=== PATIENT | female | born 1965 | race Caucasian/White ===

== ENCOUNTER 2018-06-12 00:28 | Observation (INO) | payer BC ==
[2018-06-12 01:28] LABS: Base Excess-Venous -3.1 mmol/L (0 (+/- 2.5)); Bicarbonate (HCO3v) 21.5 mmol/L (1.0-85.0); CO2 Tension (PvCO2) 35.7 mmHg (41.0-51.0); Calcium, Ionized 1.16 mmol/L (1.12-1.32); Hemoglobin - Calc 11.5 g/dL (12.0-18.0); O2 Tension (PvO2) 81.6 mmHg (35.0-45.0); Potassium 4.2 mmol/L (3.4-4.7); T. Carbon Dioxide 22.6 mmol/L (1.0-85.0); pH (Venous) 7.387 (7.35-7.45); vO2 Saturation-calc 95.9 % (94-98)
[2018-06-12 01:52] LABS: Hemoglobin 11.7 g/dL (12.0-16.0); Mean Corpuscular HGB CONC 35.2 g/dL (32.0-36.0); Mean Corpuscular Hemoglobin 31.8 pg (27.0-31.0); Mean Corpuscular Volume 90.3 fL (78.0-98.0); Mean Platelet Volume 8.1 fL (7.4-10.4); Platelet Count 285 thou/uL (130-400); RBC Distribution Width 12.6 % (11.5-14.5); Red Blood Cell (RBC) Count 3.67 mill/uL (4.20-5.40); White Blood Cell (WBC) Count 7.1 thou/uL (4.8-10.8)
[2018-06-12 02:00] LABS: Band 8 % (5-11); Eosinophils 2 % (0-10); Lymphocytes 48 % (21-51); MDiff Complete? YES; Monocytes 7 % (0-10); Neutrophil 33 % (42-75)
[2018-06-12 02:03] LABS: ALT (SGPT) 15 U/L (8-55); AST (SGOT) 12 U/L (5-34); Albumin 3.6 g/dL (3.5-5.0); Alkaline Phosphatase 107 U/L (40-150); Anion Gap 13 mmol/L (10-20); BUN (Urea Nitrogen) 23 mg/dL (9.8-20.1); Bilirubin, Total 0.3 mg/dL (0.2-1.2); Calc. Creatinine Clearance 0 mL/min (70-130); Calcium 9.2 mg/dL (7.8-10.44); Carbon Dioxide 20 mmol/L (22-29); Chloride 106 mmol/L (98-107); Estimated GFR-MDRD 67; Globulin 2.9 g/dL (2.4-3.5); Glucose 106 mg/dL (70-105); Potassium 4.4 mmol/L (3.5-5.1); Protein, Total 6.5 g/dL (6.0-8.3); Sodium 135 mmol/L (136-145)
[2018-06-12 04:37] VITALS: BMI 48.5
[2018-06-12] MEDS ORDERED: Sodium Chloride 0.9% 1,000 ML IV SCH (05:45)
[2018-06-12] MEDS ORDERED: Bisacodyl 5 MG TAB PO PRN (10:46)
[2018-06-12] MEDS ORDERED: Dextrose 5% in Water 1,000 ML IV PRN (10:46)
[2018-06-12] MEDS ORDERED: Dextrose 50% Abboject 50 ML SYRINGE SLOW IVP PRN (10:46)
[2018-06-12] MEDS ORDERED: Insulin Glargine 20 UNITS in Pre-Filled Syringe SC SCH (11:00)
[2018-06-12] MEDS: Sodium Chloride 0.9% 1,000 ML IV SCH ×2 (11:19→22:04)
--- NOTE | 2018-06-12 11:23 | HP ---
PRIMARY CARE PROVIDER: Bola Argueta M.D. CHIEF COMPLAINT: Hyperglycemia. HISTORY OF PRESENT ILLNESS: Ms. Vega is a pleasant 53-year-old lady who was seen at [facility] following transfer from [place] [facility]. She was at work two nights ago. She felt extremely hot and diaphoretic. She felt unwell. She check ed her blood sugars and the machine read high. She continued to feel unwell yesterday. Her machine again read high and she started feeling worse. She therefore went to the emergency room at [facility]. She was found to have a blood sugar of 600. She received insulin and intravenous fluids and he r blood sugars improved. She was subsequently transferred to the emergency room at [facility]. She reports feeling better. She reports that her urine color is darker than usual. REVIEW OF SYSTEMS: All other systems reviewed and found to be negative. PAST MEDICAL HISTORY: Diabetes mellitus type 2. PAST SURGICAL HISTORY: Right knee surgery, D&C, appendectomy, cholecystectomy, left lens replacement . PSYCHIATRIC HISTORY: Depression. SOCIAL HISTORY: Patient denies tobacco use, alcohol use or recreational drug use. FAMILY HISTORY: Coronary artery disease in maternal grandfather. ALLERGIES: CODEINE and DEMEROL. CURRENT MEDICATIONS: Omeprazole 20 mg daily, Zoloft 50 mg daily, metformin 500 mg 2 times a day, lis inopril 20 mg daily, NovoLog insulin by sliding scale, Levemir 40 units at bedtime. PHYSICAL EXAMINATION: GENERAL: On examination, Ms. Vega is awake and alert, not in acute distress. She is morbidly obes e, with BMI of 48.6. VITAL SIGNS: Blood pressure is 111/75, pulse 81, respiratory rate 18, and she is saturating 98% on r oom air. She is afebrile. ENT: Dry mucosal membranes, no oropharyngeal erythema or exudates. NECK: Supple, nontender, trachea is midline. RESPIRATORY: Accessory muscles of breathing are not active. Chest wall movements are symmetric bila terally. LUNGS: Clear to auscultation without wheeze, rhonchi or crepitations. CARDIOVASCULAR: S1 and S2 are heard, regular. Peripheral pulses are palpable. No carotid bruit, no pericardial rub. ABDOMEN: Soft, nontender, bowel sounds heard, no hepatomegaly, no splenomegaly. NEUROLOGIC: Cranial nerves II-XII intact. Deep tendon reflexes are 2+. MUSCULOSKELETAL: Power is 5/5 in all 4 extremities. SKIN: No rashes or subcutaneous nodules. LYMPHATIC: No cervical lymphadenopathy. PSYCHIATRIC: Normal mood, normal affect, patient is oriented to person, place, and time. IMAGING DATA AND LABORATORY DATA: Ms. Vega's labs and investigations were reviewed. She had a erica st x-ray at [place], which did not show any pulmonary infiltrates. Urinalysis is positive for g lucose, ketones, bilirubin and negative for nitrite and leukocyte esterase. She has normal white cou nt, normocytic anemia with hemoglobin 11.7, normal platelet count, decreased manual neutrophil percen tage of 33, it was decreased in the past as well, sodium mildly decreased at 135, normal potassium, c reatinine normal today, although it was elevated at 1.36 yesterday, unremarkable liver profile and no rmal anion gap. Beta hydroxybutyrate level is normal as well. Carbon dioxide level is slightly decr eased at 20. Point of care glucose checks today morning have been 138 at 01:52 hours and 356 at 07:0 6 hours. ASSESSMENT AND PLAN: Ms. Vega is a pleasant 53-year-old lady who was seen at [facility] on 06/12/2018. Her problem list includes: 1. Hyperglycemia: Etiology is unclear. Patient reported being compliant with her medications excep t for missing her Levemir dose last night. There is no evidence of infection. We will start the pat ient on Accu-Cheks and insulin sliding scale. We will give her Levemir 20 units today morning and 40 units in the evening. We will also provide her with intravenous fluids. Once her sugars are contro lled, she will be discharged home. 2. Hyponatremia: Mild, we will recheck. 3. Elevated blood urea nitrogen: Likely from dehydration. Provide intravenous fluids and recheck. Many thanks for allowing me to participate in your patient's care. Please feel free to contact me wi th any questions or concerns. LEVEL OF RISK: Moderate. LEVEL OF COMPLEXITY: Moderate.
[2018-06-12] MEDS: HumaLOG 300 UNITS/3 ML VIAL SC PRN ×3 (15:08→20:36)
[2018-06-12] MEDS: Acetaminophen 325 MG TAB PO PRN ×2 (15:08→19:59)
[2018-06-12] MEDS ORDERED: Insulin Glargine 40 UNITS in Pre-Filled Syringe SC SCH (21:00)
[2018-06-13 05:25] LABS: Anion Gap 13 mmol/L (10-20); BUN (Urea Nitrogen) 13 mg/dL (9.8-20.1); Calc. Creatinine Clearance 162 mL/min (70-130); Calcium 8.8 mg/dL (7.8-10.44); Carbon Dioxide 20 mmol/L (22-29); Chloride 110 mmol/L (98-107); Estimated GFR-MDRD 82; Sodium 139 mmol/L (136-145)
[2018-06-13 05:34] LABS: Glucose 52 mg/dL (70-105)
[2018-06-13 05:51] LABS: Band 5 % (5-11); Eosinophils 3 % (0-10); Hemoglobin 11.2 g/dL (12.0-16.0); Lymphocytes 54 % (21-51); MDiff Complete? YES; Mean Corpuscular HGB CONC 33.2 g/dL (32.0-36.0); Mean Corpuscular Hemoglobin 30.6 pg (27.0-31.0); Mean Corpuscular Volume 92.2 fL (78.0-98.0); Mean Platelet Volume 7.3 fL (7.4-10.4); Monocytes 4 % (0-10); Neutrophil 33 % (42-75); Platelet Count 267 thou/uL (130-400); RBC Distribution Width 12.6 % (11.5-14.5); Reactive Lymphocytes 1 % (0-10); Red Blood Cell (RBC) Count 3.68 mill/uL (4.20-5.40); White Blood Cell (WBC) Count 5.3 thou/uL (4.8-10.8)
[2018-06-13 08:01] VITALS: TEMP 98.1
[2018-06-13] MEDS: Sodium Chloride 0.9% 1,000 ML IV SCH (08:11)
[2018-06-13] MEDS ORDERED: Enoxaparin Sodium 40 MG/0.4 ML SYRINGE SC SCH (09:00)
[2018-06-13 11:57] VITALS: BP 97/66
--- NOTE | 2018-06-13 21:30 | DIS ---
DATE OF ADMISSION: 06/12/2018 DATE OF DISCHARGE 06/13/2018 PRIMARY CARE PHYSICIAN: Bola Argueta MD DISCHARGE DIAGNOSES: 1. Hyperglycemia. 2. Hyponatremia. 3. Dehydration. DISCHARGE MEDICATIONS: No change was made to her preadmission home medications as dictated on my his tory and physical note dated 06/12/2018. CONDITION OF THE PATIENT ON THE DAY OF DISCHARGE: Stable. I assessed Ms. Vega on the day of disch arge. She reports feeling better. She denies any chest pain or shortness of breath. Vital signs ar e stable. S1 and S2 are heard, regular. Lungs are clear to auscultation bilaterally. HOSPITAL COURSE: Mr. Vega is a pleasant 53-year-old lady who was admitted to [facility] on 06/12/2018 for hyperglycemia following transfer from emergency room at [place]. The hyperglycemia occurred in the context of working in a hot environment, most likely precipitated by stress response. She was not in diabetic ketoacidosis. She was also dehydrated and was hyponatre usman. She was treated with intravenous fluids as well as insulin prior to arrival at [facility]. At [facility], she received 20 units of Levemir on the morning of 2017 and 40 units in the evening. She did have hypoglycemic response on the morning of 06/13/2018. She is advised to continue her home dose of 40 units Levemir at bedtime. Her dehydration resolved. Hyponatremia also resolved. She is being discharged home in a stable cond ition. Many thanks for allowing me to participate in your patient's care. Please feel free to contact me wi th any questions or concerns. DISCHARGE DESTINATION: Home.
== END 2018-06-13 12:54 | disposition home or self-care (01) ==
LOC: ERS 00:28 → T4-B 04:06
PROVIDERS: ADMIT Hospitalist; ATTEND Hospitalist
DX: E11.65 Type 2 diabetes mellitus with hyperglycemia (principal); E87.1 Hypo-osmolality and hyponatremia; Z88.5 Allergy status to narcotic agent; Z79.4 Long term (current) use of insulin; Z79.899 Other long term (current) drug therapy
CPT/HCPCS: 36415; 36416; 80048; 80053; 82010; 82330; 82803; 85025; 96360; 96361; 96372; 99285; G0378; J1650

== ENCOUNTER 2019-06-17 16:29 | Inpatient (IN) | payer BC ==
[2019-06-17] MEDS ORDERED: Dextrose 50% Abboject 50 ML SYRINGE SLOW IVP PRN ×2 (17:10→18:05)
[2019-06-17] MEDS ORDERED: HUMULIN R 100 UNITS in Sodium Chloride 0.9% 100 ML IVPB SCH (17:10)
[2019-06-17] MEDS ORDERED: Dextrose 5% in Water 1,000 ML IV PRN ×2 (17:10→18:05)
[2019-06-17 17:19] LABS: Phosphorus 2.2 mg/dL (2.3-4.7)
[2019-06-17 17:20] LABS: Anion Gap 15 mmol/L (10-20); BUN (Urea Nitrogen) 19 mg/dL (9.8-20.1); Calc. Creatinine Clearance 0 mL/min (70-130); Calcium 9.3 mg/dL (7.8-10.44); Carbon Dioxide 21 mmol/L (22-29); Chloride 105 mmol/L (98-107); Estimated GFR-MDRD 56; Glucose 102 mg/dL (70-105); Magnesium 1.6 mg/dL (1.6-2.6); Sodium 137 mmol/L (136-145)
[2019-06-17] MEDS ORDERED: Ondansetron PF 4 MG/2 ML Vial IVP PRN (18:05)
[2019-06-17] MEDS ORDERED: Senokot S 8.6-50 MG TAB PO PRN (18:05)
[2019-06-17] MEDS ORDERED: Guaifenesin DM 100-10/5 ML UDCUP PO PRN (18:05)
[2019-06-17] MEDS ORDERED: HumaLOG 300 UNITS/3 ML VIAL SC PRN (18:05)
[2019-06-17] MEDS ORDERED: Bisacodyl 10 MG SUPP PR PRN (18:05)
[2019-06-17] MEDS ORDERED: Calcium Carbonate 500 MG ChewTAB PO PRN (18:05)
--- NOTE | 2019-06-17 20:51 | HP ---
REASON FOR ADMISSION: Possible sepsis; diabetes uncontrolled; acute gastroenteritis, and [id number] dehydration. HISTORY OF PRESENTING ILLNESS: The patient gives history of having watery diarrhea for almost a week now. She was passing 4 to 5 times a day. No blood or mucus in the stool. From last 24 hours, the patient's diarrhea got worse and was almost going continuously. She thinks she had a small amount of diarrhea nearly 15 times in the last 24 hours. She also vomited once. She has developed a headache. She checked her sugar, it was 489 this morning. The patient states she had a coffee and toast, which stayed down this morning. She also complains of urinary burning sensation and itching around her vaginal/urethral orifice and started Monistat cream. She also uses estrogen cream, which was prescribed by Dr. Stovall. When EMS arrived to check on her, her blood pressure was 60/35. She was given 2 L of fluid at [place] [facility] and is getting her fourth liter of fluid here. Her systolic blood pressure has come up to 120. After her third liter, the patient's blood pressure was 86 systolic. She has no complaints of shortness of breath. She has dry cough, which has been chronic. No wound. No sore anywhere. No specific weakness in any of her extremities. No history of trauma. PAST MEDICAL AND SURGICAL HISTORY: Diabetes mellitus, type 2 for the last 30 years; obesity; hypertension. Recurrent UTI, almost had 6 times last year and was on Macrobid suppressive dose. This was discontinued 2 weeks back when she had a followup to see Dr. Stovall. Depression, GERD, right knee surgery, history of D and C, appendectomy, cholecystectomy, left cataract surgery with intraocular lens. No prior colonoscopy. CURRENT MEDICATIONS: The patient is on: 1. Omeprazole 20 mg p.o. daily. 2. Zoloft 50 mg p.o. daily. 3. Metformin 500 mg p.o. twice daily. 4. Lisinopril 20 mg p.o. daily. 5. NovoLog 15 units on an average before meals 3 times a day. 6. Levemir 35 units subcutaneously at bedtime. ALLERGIES: 1. CODEINE. 2. DEMEROL. PERSONAL HISTORY: Does not abuse alcohol or drugs. No history of smoking. FAMILY HISTORY: Mother is here with her at bedside. She has history of COPD, on home oxygen. She also has history of breast cancer. She does not know much about her biological father. He had known history of coronary artery disease. Likely , he is living. CODE STATUS: Full. Power of sports attorney is her mom. REVIEW OF SYSTEMS: CONSTITUTIONAL: Negative for weight loss or gain, ability to conduct usual activities. SKIN: Negative for rash, itching. EYES: Negative for double vision, pain. ENT/MOUTH: Negative for nose bleeding, neck stiffness, pain, tenderness. CARDIOVASCULAR: Negative for palpitations, dyspnea on exertion, orthopnea. RESPIRATORY: Negative for shortness of breath, wheezing, cough, hemoptysis, fever or night sweats. GASTROINTESTINAL: Negative for poor appetite, abdominal pain, heartburn, nausea , vomiting, constipation, or diarrhea. GENITOURINARY: Negative for urgency, frequency, dysuria, nocturia. MUSCULOSKELETAL: Negative for pain, swelling. NEUROLOGIC/PSYCHIATRIC: Negative for anxiety, depression. ALLERGY/IMMUNOLOGIC: Negative for skin rash, bleeding tendency. PHYSICAL EXAMINATION: GENERAL: The patient is a 54-year-old female, who is currently not in any acute distress. VITAL SIGNS: Blood pressure after 3 L was 90/56; after fourth liter, it has come up to 120/74. Pulse 86 per minute, respiratory rate 16 per minute, temperature 98.1 degrees Fahrenheit, saturating 98% on room air. NECK: Supple. No elevated JVD. HEENT: Eyes; extraocular muscles are intact. Pupils are reacting to light. Oral cavity; mucous membranes are dry. No exudates or congestion. CARDIOVASCULAR: S1 and S2 heard. Regular rhythm. RESPIRATORY: Air entry 1+ bilateral. No rales or rhonchi. ABDOMEN: Soft. Bowel sounds heard. No tenderness, rigidity, or guarding. Left costovertebral angle tenderness. EXTREMITIES: No peripheral edema or calf tenderness. VASCULAR: Peripheral pulses 1+ bilateral. No ischemic ulcerations or gangrene. CENTRAL NERVOUS SYSTEM: No gross focal deficits noted. The patient is alert, awake, and oriented well. PSYCHIATRIC: The patient's mood is euthymic. No hallucinations or delusions. LABORATORY DATA: UA shows more than 1000 mg/dL of glucose, ketones positive, trace leukocyte esterase, 0 to 3 wbc's, 1+ bacteria. Beta-hydroxybutyrate is 0.3. Random cortisol is 7.5. BUN 20, creatinine 1.2. Serum bicarb was 13; a repeat done at 5 p.m., is 21. Liver enzymes are within normal limits. Troponin I x1 is negative. Albumin 3.9. White count of 7.9, H and H 11 and 37, platelet count 302, MCV is 92 with 64% neutrophils. CLINICAL IMPRESSION AND PLAN: The patient will be admitted to medical floor. Initial plan was to send her to IMCU, but her blood pressure has improved after a total of 4 L. She likely is dehydrated. Again, initial suspicion was for sepsis with urinary tract infection along with left costovertebral angle tenderness and severe diarrhea, likely gastroenteritis. We will obtain stool cultures and Clostridium difficile. Blood cultures and urine culture have been obtained in the ER. She will be empirically placed on vancomycin and Zosyn for now. She will continue fluid hydration with lactated Ringer's at 125 mL/hour. Echo with 2D Doppler for LV function will be obtained. We will continue her Lantus at 40 units subcutaneously at bedtime tonight. I will continue to closely monitor her for any hemodynamic compromise. PT/OT evaluations will be requested again in the morning. A CT stone protocol and a chest x-ray will be obtained as well. Job ID: [id number] MTDD
[2019-06-17] MEDS ORDERED: Non-Formulary Item 1 EACH (Levemir Flexpen [Levemir Flexpen] 40 UNIT) SC SCH (21:00)
[2019-06-17] MEDS: Lactated Ringer's 1,000 ML IV SCH (21:12)
[2019-06-17] MEDS: Piperacillin/Tazobactam 3.375 GM in Sodium Chloride 0.9% 100 ML IVPB SCH (21:15)
[2019-06-17] MEDS: Famotidine 20 MG TAB PO SCH (21:16)
[2019-06-17] MEDS: Vancomycin HCl 1.5 GM in Sodium Chloride 0.9% 250 ML 300 ML IVPB SCH (21:21)
--- NOTE | 2019-06-17 21:31 | RAD ---
FRONTAL RADIOGRAPH CHEST: 06/17/2019 HISTORY: Sepsis. FINDINGS: The lungs are clear. The heart and mediastinal contours are unremarkable. IMPRESSION: No acute findings. POS: [facility]
--- NOTE | 2019-06-17 21:31 | CT ---
CT ABDOMEN AND PELVIS WITHOUT CONTRAST: 06/17/2019 HISTORY: Left flank pain. COMPARISON: None. TECHNIQUE: Axial CT imaging at 5 mm intervals through the abdomen/pelvis without contrast. Coronal reformatted imaging obtained. FINDINGS: Lack of contrast limits assessment of the viscera, bowel, and vascular structures and for lymphadenop athy. Small fat-containing Bochdalek hernia noted on the right. Imaged lung bases are unremarkable. No fr ee intraperitoneal air. Small-volume nonspecific free fluid noted in the pelvic cul-de-sac. There is a small hypodensity within the posterior right lobe of the liver, on image 28, measuring 10 mm, too small to characterize. The gallbladder is surgically absent. The liver, spleen, pancreas, a drenal glands, and kidneys demonstrate no acute findings. There is no nephrolithiasis or evidence of obstructive uropathy on either side. Limited assessment of the bowel demonstrates no evidence for obstruction. The appendix is not discretely visualized, but no right lower quadrant inflammatory change noted. There is scattered atherosclerotic calcification involving the arterial structures of the abdomen/pel vis. Review of the osseous structures demonstrates no worrisome lytic or blastic lesion. IMPRESSION: No evidence for obstructive uropathy or nephrolithiasis. POS: [facility]
[2019-06-17 22:36] VITALS: BMI 45.5
[2019-06-17] MEDS: Acetaminophen 325 MG TAB PO PRN (23:46)
[2019-06-17] MEDS: Insulin Glargine 40 UNITS in Pre-Filled Syringe 1 EACH SC SCH (23:47)
[2019-06-18] MEDS: Piperacillin/Tazobactam 3.375 GM in Sodium Chloride 0.9% 100 ML IVPB SCH ×2 (05:19→13:53)
[2019-06-18] MEDS: Acetaminophen 325 MG TAB PO PRN (05:19)
[2019-06-18] MEDS: Lactated Ringer's 1,000 ML IV SCH ×3 (05:20→18:04)
[2019-06-18 06:15] LABS: #Basophils 0.1 thou/uL (0.0-0.2); #Eosinphils 0.1 thou/uL (0.0-0.7); #Lymphocytes 2.1 thou/uL (1.20-3.40); #Monocytes 0.4 thou/uL (0.11-0.59); #Neutrophils 2.6 thou/uL (1.40-6.50); %Basophils 1.5 % (0.0-1.0); %Eosinophils 1.4 % (0.0-10.0); %Lymphocytes 40.5 % (21.0-51.0); %Monocytes 6.8 % (0.0-10.0); %Neutrophils 49.8 % (42.0-75.0); Hemoglobin 10.9 g/dL (12.0-16.0); Mean Corpuscular HGB CONC 32.5 g/dL (32.0-36.0); Mean Corpuscular Hemoglobin 30.7 pg (27.0-31.0); Mean Corpuscular Volume 94.4 fL (78.0-98.0); Mean Platelet Volume 9.2 fL (7.4-10.4); Platelet Count 187 thou/uL (130-400); RBC Distribution Width 14.5 % (11.5-14.5); Red Blood Cell (RBC) Count 3.57 mill/uL (4.20-5.40); White Blood Cell (WBC) Count 5.3 thou/uL (4.8-10.8)
[2019-06-18 06:39] LABS: Anion Gap 13 mmol/L (10-20); BUN (Urea Nitrogen) 17 mg/dL (9.8-20.1); Calc. Creatinine Clearance 144 mL/min (70-130); Calcium 8.2 mg/dL (7.8-10.44); Carbon Dioxide 20 mmol/L (22-29); Chloride 106 mmol/L (98-107); Estimated GFR-MDRD 78; Glucose 200 mg/dL (70-105); Potassium 4.7 mmol/L (3.5-5.1); Sodium 134 mmol/L (136-145)
[2019-06-18] MEDS: Enoxaparin Sodium 40 MG/0.4 ML SYRINGE SC SCH (09:24)
[2019-06-18] MEDS: Famotidine 20 MG TAB PO SCH ×2 (09:24→20:06)
[2019-06-18] MEDS: Vancomycin HCl 1.5 GM in Sodium Chloride 0.9% 250 ML 300 ML IVPB SCH (09:24)
[2019-06-18] MEDS: HumaLOG 300 UNITS/3 ML VIAL SC PRN ×2 (13:06→16:12)
--- NOTE | 2019-06-18 16:59 | PDOC.HOSPP ---
- Subjective Subjective: pt up in bed feels weak - Objective Vital Signs & Weight: Vital Signs (12 hours) Temp Pulse Resp BP Pulse Ox 06/18/19 15:27 98.3 F 80 17 119/79 99 06/18/19 11:00 98.3 F 78 20 101/67 97 06/18/19 08:25 98 06/18/19 07:14 98.3 F 70 18 97/62 98 Weight Weight 241 lb I&O: 06/17/19 06/18/19 06/19/19 06:59 06:59 06:59 Intake Total 1725 Balance 1725 Result Diagrams: 06/18/19 05:57 06/18/19 05:57 Additional Labs: Accuchecks 06/18/19 06/18/19 06/18/19 15:32 12:01 05:41 POC Glucose 207 H 356 H 174 H 06/17/19 06/17/19 21:18 16:50 POC Glucose 76 100 ROS - Review of Systems All systems: All other ROS were reviewed and found negative. Respiratory: denies: cough, dry, shortness of breath, hemoptysis, SOB with excertion, pleuritic pain, sputum, wheezing, other Cardiovascular: denies: chest pain, palpitations, orthopnea, paroxysmal noc. dyspnea, edema, light headedness, other Gastrointestinal: reports: abdominal pain, diarrhea (her diarrhea is better) - Medication Medications: Active Medications Generic Name Dose Route Start Last Admin Trade Name Freq PRN Reason Stop Dose Admin Acetaminophen 650 mg 06/17/19 18:05 06/18/19 05:19 Tylenol PO 650 mg Q4H PRN Administration Headache/Fever/Mild Pain (1-3) Enoxaparin Sodium 40 mg 06/18/19 09:00 06/18/19 09:24 Lovenox SC 40 mg 0900 ALICIA Administration Famotidine 20 mg 06/17/19 21:00 06/18/19 09:24 Pepcid PO 20 mg BID ALICIA Administration Piperacillin Sod/Tazobactam 100 mls @ 200 mls/hr 06/17/19 22:00 06/18/19 13: 53 Sod 3.375 gm/ Sodium Chloride IVPB 100 mls Q8HR ALICIA Administration Vancomycin HCl 1.5 gm/ Sodium 300 mls @ 200 mls/hr 06/17/19 21:00 06/18/19 09 :24 Chloride IVPB 300 mls Q12HR ALICIA Administration Lactated Ringer's 1,000 mls @ 125 mls/hr 06/17/19 18:15 06/18/19 10:10 Lactated Ringer's IV Not Given .Q8H ALICIA Insulin Glargine 40 units/ 0.4 mls @ 0 mls/hr 06/17/19 21:00 06/17/19 23:47 Miscellaneous Medication SC Not Given HS [facility] Insulin Human Lispro 0 units 06/17/19 18:05 06/18/19 16:12 Humalog SC 4 unit .MODERATE SLIDING SC PRN Administration Moderate Correctional Scale Sertraline HCl 150 mg 06/18/19 09:00 06/18/19 09:24 Zoloft PO 150 mg DAILY ALICIA Administration Sodium Chloride 10 ml 06/17/19 21:00 06/18/19 09:25 Flush - Normal Saline IVF 10 ml Q12HR ALICIA Administration - Exam Heart: negative: RRR, no murmur, no gallops, no rubs, normal peripheral pulses, irregular, diminshed peripheral pulses, murmur present, II/IV, III/IV Respiratory: negative: CTAB, no wheezes, no rales, no ronchi, normal chest expansion, no tachypnea, normal percussion, rales, rhonchi, tachypneic, wheezes Gastrointestinal: soft, non-distended, normal bowel sounds (some pain to her left flank area on palpation) Hosp A/P (1) Acute gastroenteritis Code(s): K52.9 - NONINFECTIVE GASTROENTERITIS AND COLITIS, UNSPECIFIED Status : Acute (2) DKA (diabetic ketoacidosis) Code(s): E13.10 - OTH DIABETES MELLITUS WITH KETOACIDOSIS WITHOUT COMA Status : Acute - Plan pt still feels weak. Her cdiff was not done due to her stool being formed. will continue hydration. She was on nitrofurantoin about 2 weeks ago for uti. i will stop her zosyn. No uti on my interpretation of her ua.
[2019-06-18] MEDS: Insulin Glargine 40 UNITS in Pre-Filled Syringe 1 EACH SC SCH (20:06)
[2019-06-18] MEDS ORDERED: Ketorolac Tromethamine 15 MG/ML VIAL IVP PRN (22:01)
[2019-06-18] MEDS ORDERED: Ketorolac Tromethamine 30 MG/ML VIAL IVP PRN (22:15)
[2019-06-19] MEDS: HumaLOG 300 UNITS/3 ML VIAL SC PRN ×2 (05:32→11:49)
[2019-06-19] MEDS: Lactated Ringer's 1,000 ML IV SCH ×2 (05:33→11:34)
[2019-06-19] MEDS ORDERED: Ketorolac Tromethamine 30 MG/ML VIAL IVP SCH (06:00)
[2019-06-19] MEDS: Famotidine 20 MG TAB PO SCH (09:00)
[2019-06-19] MEDS: Enoxaparin Sodium 40 MG/0.4 ML SYRINGE SC SCH (09:00)
[2019-06-19 09:09] LABS: ALT (SGPT) 28 U/L (8-55); AST (SGOT) 84 U/L (5-34); Albumin 3.1 g/dL (3.5-5.0); Alkaline Phosphatase 131 U/L (40-150); Anion Gap 14 mmol/L (10-20); BUN (Urea Nitrogen) 13 mg/dL (9.8-20.1); Bilirubin, Total 0.2 mg/dL (0.2-1.2); Calc. Creatinine Clearance 154 mL/min (70-130); Calcium 8.7 mg/dL (7.8-10.44); Carbon Dioxide 21 mmol/L (22-29); Chloride 106 mmol/L (98-107); Estimated GFR-MDRD 84; Globulin 2.6 g/dL (2.4-3.5); Glucose 135 mg/dL (70-105); Potassium 4.5 mmol/L (3.5-5.1); Protein, Total 5.7 g/dL (6.0-8.3); Sodium 136 mmol/L (136-145)
[2019-06-19] MEDS ORDERED: Fluconazole 100 MG TAB PO SCH (11:45)
[2019-06-19 15:06] VITALS: BP 123/81; TEMP 97.6
[2019-06-20] MEDS ORDERED: Fluconazole 100 MG TAB PO SCH ×2 (09:00)
--- NOTE | 2019-06-20 10:37 | DIS ---
DATE OF ADMISSION: 06/17/2019 DATE OF DISCHARGE: 06/19/2019 DISCHARGE DIAGNOSES: As of the followin. Acute gastroenteritis. 2. Diabetic ketoacidosis. HOSPITAL COURSE: The patient is a 54-year-old female, please look at the H and P for further details, who initially presented to the hospital with complaints of dehydration and also diarrhea. The patient stated that she had been having diarrhea for the past almost about a week. She was found to be hypotensive and also sugar was found to be in 489. She initially was given some IV hydration and her stool was sent for viral studies. She was given some IV insulin and was admitted to the hospital. The patient continued to improve through the hospital stay. Her diarrhea studies were all negative. She did have a urine culture that was positive 425-50,000 colonies of Streptococcus agalactiae. The patient continued to improve. She had no symptoms. She was walking around, eating without any issues and no more diarrhea. She did have an echocardiogram, which indicated an EF of 60% to 65% with normal diastolic function. PHYSICAL EXAMINATION: VITAL SIGNS: Temperature 97.6, 76, 18, 97% on room air, 123/81. GENERAL: She is awake, alert, and oriented x3. Does not appear in distress. CV: S1, S2 present. No murmurs, rubs, or gallops. ABDOMEN: Soft and nontender. Bowel sounds are present x2. MEDICATIONS: As of the followin. Diclofenac topical to her left lower back area. 2. Lisinopril daily. 3. Pravastatin 20 mg daily. 4. Metformin 500 mg b.i.d. 5. Levemir 40 units at bedtime. 6. Insulin NovoLog 7 units t.i.d. with meals. 7. Omeprazole 20 mg daily. 8. Sertraline daily. Again, the patient will be discharged home. She will follow up with her primary. Job ID: [id number]
== END 2019-06-19 15:00 | disposition home or self-care (01) | DRG 391 ==
LOC: ERS 16:29 → T4-B 20:12
PROVIDERS: ADMIT Internal Medicine; ATTEND Internal Medicine
DX: K52.9 Noninfective gastroenteritis and colitis, unspecified (principal); E11.10 Type 2 diabetes mellitus with ketoacidosis without coma; Z68.42 Body mass index [BMI] 45.0-49.9, adult; E86.0 Dehydration; I10 Essential (primary) hypertension; E66.9 Obesity, unspecified; F32.9 Major depressive disorder, single episode, unspecified; K21.9 Gastro-esophageal reflux disease without esophagitis; Z90.49 Acquired absence of other specified parts of digestive tract; Z79.4 Long term (current) use of insulin; Z79.899 Other long term (current) drug therapy; Z88.5 Allergy status to narcotic agent
CPT/HCPCS: 36415; 36416; 71045; 74176; 80048; 80053; 82010; 82533; 83605; 83735; 84100; 84443; 85025; 87040; 87045; 87046; 87077; 87086; 87449; 87899; 93306; 96360; J1650; J1815; J1885; J2543; J3370; J3490; J7050

== ENCOUNTER 2019-07-09 18:59 | Inpatient (IN) | payer BC ==
[2019-07-09] MEDS ORDERED: Insulin Regular 100 units/100 ml in NS IVPB SCH (19:30)
[2019-07-09] MEDS ORDERED: Acetaminophen 500 MG TAB ONE (20:48)
[2019-07-09] MEDS ORDERED: Ondansetron PF 4 MG/2 ML Vial ONE (20:48)
[2019-07-09] MEDS ORDERED: Ondansetron ODT 4 MG TAB SL PRN (21:46)
[2019-07-09] MEDS ORDERED: Ondansetron PF 4 MG/2 ML Vial IVP PRN (21:46)
[2019-07-09] MEDS ORDERED: Dextrose 5% in Water 1,000 ML IV PRN (21:59)
[2019-07-09] MEDS ORDERED: Dextrose 5 %-0.45 % NaCl 1,000 ML IV PRN (21:59)
[2019-07-09] MEDS ORDERED: Sodium Chloride 0.9% 1,000 ML IV PRN ×4 (21:59)
[2019-07-09] MEDS ORDERED: NS 0.9% w/ 20 MEQ KCL 1,000 ML/1,000 ML BAG IV PRN ×2 (21:59)
[2019-07-09] MEDS ORDERED: HUMULIN R 100 UNITS in Sodium Chloride 0.9% 100 ML IVPB SCH (22:00)
[2019-07-09] MEDS ORDERED: ADD ELECTROLYTE REPLACEMENT SET TO PROFILE FS SCH (22:00)
[2019-07-09] MEDS ORDERED: Potassium Chloride 40 MEQ in Sodium Chloride 0.9% 250 ML 250 ML IVPB PRN (22:01)
[2019-07-09] MEDS ORDERED: Potassium Chloride 20 MEQ TAB PO PRN (22:01)
[2019-07-09] MEDS ORDERED: Potassium Phosphate 9 MMOL in Sodium Chloride 0.9% 100 ML IVPB PRN (22:01)
[2019-07-09] MEDS ORDERED: Magnesium 2 GM/50 ML 2 GM in Premix Bag 1 BAG IVPB PRN (22:01)
[2019-07-09] MEDS ORDERED: PHOS-NAK 1 PKT PACK PO PRN ×2 (22:01)
[2019-07-09] MEDS ORDERED: Dextrose 50% Abboject 50 ML SYRINGE SLOW IVP PRN (22:01)
[2019-07-09] MEDS ORDERED: Potassium Phosphate 15 MMOL in Sodium Chloride 0.9% 250 ML 250 ML IV PRN (22:01)
[2019-07-09] MEDS ORDERED: Magnesium Oxide 400 MG TAB PO PRN ×2 (22:01)
[2019-07-09] MEDS ORDERED: Potassium Phosphate 12 MMOL in Sodium Chloride 0.9% 250 ML 250 ML IV PRN (22:01)
[2019-07-09] MEDS ORDERED: Potassium Chloride 40 MEQ in Premix Bag 1 BAG IVPB PRN (22:01)
[2019-07-09] MEDS ORDERED: CCU ELECTROLYTE REPLACEMENT PROTOCOL FS PRN (22:01)
[2019-07-09 22:51] VITALS: BMI 43.6
[2019-07-09 23:31] LABS: Anion Gap 25 mmol/L (10-20); BUN (Urea Nitrogen) 18 mg/dL (9.8-20.1); Calc. Creatinine Clearance 87 mL/min (70-130); Calcium 9.1 mg/dL (7.8-10.44); Chloride 109 mmol/L (98-107); Estimated GFR-MDRD 46; Glucose 167 mg/dL (70-105); Potassium 4.5 mmol/L (3.5-5.1); Sodium 138 mmol/L (136-145)
[2019-07-09 23:36] LABS: Carbon Dioxide 9 mmol/L (22-29)
[2019-07-10] MEDS: Sodium Chloride 0.9% 1,000 ML IV SCH ×4 (00:06→21:02)
[2019-07-10] MEDS: D5 1/2 NS w/20 mEq KCL 1,000 ML IV PRN ×2 (00:06→03:57)
[2019-07-10] MEDS: Acetaminophen 325 MG TAB PO PRN (00:09)
[2019-07-10 06:54] LABS: Anion Gap 18 mmol/L (10-20); BUN (Urea Nitrogen) 12 mg/dL (9.8-20.1); Calc. Creatinine Clearance 110 mL/min (70-130); Calcium 8.3 mg/dL (7.8-10.44); Carbon Dioxide 11 mmol/L (22-29); Chloride 108 mmol/L (98-107); Estimated GFR-MDRD 60; Glucose 200 mg/dL (70-105); Magnesium 1.5 mg/dL (1.6-2.6); Phosphorus 2.7 mg/dL (2.3-4.7); Potassium 5.4 mmol/L (3.5-5.1); Sodium 132 mmol/L (136-145)
[2019-07-10] MEDS: Aspirin/APAP/Caffeine Tab (Excedrin Migraine) PO PRN (08:30)
[2019-07-10] MEDS ORDERED: Insulin Glargine 10 UNITS in Pre-Filled Syringe 1 EACH SC SCH (12:13)
[2019-07-10 13:50] LABS: Bilirubin Negative (Negative); Blood, Urine Negative (Negative); Clarity Clear (Clear); Glucose, Urine (Dipstick) 300 mg/dL (Negative); Leukocyte Negative Leu/uL (Negative); Nitrite Negative (Negative); Protein, Urine (Dipstick) Negative (Neg-Trace); RBC/HPF 0-3 HPF (0-3); Squamous Epithelial 0-3 HPF (0-3); Urobilinogen Normal mg/dL (Less than 2); WBC/HPF 0-3 HPF (0-3)
[2019-07-10 14:08] LABS: Bacteria/HPF None Seen HPF (None Seen); Urine Culture Reflex No No
--- NOTE | 2019-07-10 14:47 | HP ---
REASON FOR ADMISSION: DKA. HISTORY OF PRESENTING ILLNESS: The patient gives history of feeling dizzy yesterday morning. She also vomited once yesterday. On Monday, the patient had multiple episodes of loose watery stools, which got completely resolved by evening. She finally went to see Dr. Arugeta yesterday morning and was asked to go to [facility]. From there, the patient made it to emergency room here. No complaints of fever at home. Has some dry cough, but no expectoration. Has some burning urination off and on. No complaints of chest pain, palpitation, PND, or orthopnea. PAST MEDICAL AND SURGICAL HISTORY: Diabetes mellitus type 2 for last 30 years, hypertension, obesity, history of recurrent UTI, recent history of diarrhea and dehydration after being hospitalized at the end of May and early June, depression, GERD, right knee surgery, history of D and C, appendectomy, cholecystectomy, and left eye cataract surgery with intraocular lens. PERSONAL HISTORY: Does not abuse alcohol or drugs. No history of smoking. FAMILY HISTORY: Mother has history of COPD and is on home oxygen. She also has history of breast cancer. She does not know much about her biological father. CURRENT MEDICATIONS: The patient is on; 1. NovoLog 7 units subcu 3 times daily. 2. Levemir 20 units subcu twice daily. 3. Metformin 500 mg twice daily. 4. Omeprazole 20 mg daily. 5. Sertraline 150 mg daily. 6. Lisinopril 2.5 mg p.o. daily. CODE STATUS: Full. Power of personal injury attorney is her mom. REVIEW OF SYSTEMS: CONSTITUTIONAL: Negative for weight loss or gain, ability to conduct usual activities. SKIN: Negative for rash, itching. EYES: Negative for double vision, pain. ENT/MOUTH: Negative for nose bleeding, neck stiffness, pain, tenderness. CARDIOVASCULAR: Negative for palpitations, dyspnea on exertion, orthopnea. RESPIRATORY: Negative for shortness of breath, wheezing, cough, hemoptysis, fever or night sweats. GASTROINTESTINAL: Negative for poor appetite, abdominal pain, heartburn, nausea , vomiting, constipation, or diarrhea. GENITOURINARY: Negative for urgency, frequency, dysuria, nocturia. MUSCULOSKELETAL: Negative for pain, swelling. NEUROLOGIC/PSYCHIATRIC: Negative for anxiety, depression. ALLERGY/IMMUNOLOGIC: Negative for skin rash, bleeding tendency. PHYSICAL EXAMINATION: GENERAL: The patient is a 54-year-old female, who is currently not in any acute distress. VITAL SIGNS: Blood pressure 114/56, pulse 90 per minute, respiratory rate 16 per minute, temperature 98.7 degrees Fahrenheit, and saturating 98% on room air. NECK: Supple. No elevated JVD. HEENT: Eyes; extraocular muscles intact. Pupils reacting to light. Oral cavity, mucous membranes are dry. No exudates or congestion. CARDIOVASCULAR SYSTEM: S1 and S2 heard. Regular rhythm. RESPIRATORY SYSTEM: Air entry 1+ bilateral. No rales or rhonchi. ABDOMEN: Soft. Bowel sounds heard. No tenderness, rigidity, or guarding. EXTREMITIES: No peripheral edema or calf tenderness. VASCULAR SYSTEM: Peripheral pulses 1+ bilateral. No ischemic ulcerations or gangrene. CENTRAL NERVOUS SYSTEM: No gross focal deficits noted. The patient is alert and oriented well. PSYCHIATRIC SYSTEM: The patient's mood is euthymic. No hallucinations or delusions. LABORATORY DATA: White count of 7, H and H of 11 and 39, platelet count 329 with 77% neutrophils and MCV is 95. Venous blood gas done shows a pH of 7.125. Venous pCO2 of 17. Venous blood gas, PO2 of 93. Had a bicarb less than 9 on admission. BUN 18, creatinine 1.2, and serum glucose 684 on admission. RADIOLOGY DATA: EKG done shows sinus tach at 114 beats per minute. There is RBBB seen. CLINICAL IMPRESSION AND PLAN: The patient was admitted to [facility] on IV insulin drip. Currently, her gap is closing. She is also hemodynamically stable now. We will transfer her to medical floor. We will continue her hydration at normal saline at 100 mL per hour. We will stop her IV insulin and place her on Levemir 20 units subcu twice daily and continue home-dose metformin 500 mg twice daily. She is also on a small dose of lisinopril at home and will continue the same. Levy-cultures will be obtained. She has had recurrent episodes of diarrhea and dehydration. This is a second hospitalization in the last month. We will obtain stool studies as well , if she can provide one. She says her diarrhea has completely resolved at present. The patient says she is compliant with her insulins. She does not hydrate herself well per mother at bedside. We will continue to closely monitor her. Job ID: [id number] [facility]
[2019-07-10] MEDS ORDERED: Dextrose 5% in Water 1,000 ML IV PRN (17:11)
[2019-07-10] MEDS: HumaLOG 300 UNITS/3 ML VIAL SC PRN ×2 (17:34→21:06)
[2019-07-10] MEDS ORDERED: metFORMIN 500 MG TAB PO SCH ×2 (20:00→21:00)
[2019-07-10] MEDS ORDERED: Non-Formulary Item 1 EACH (Levemir Flexpen [Levemir Flexpen] 20 UNIT) SC SCH (21:00)
[2019-07-10] MEDS: Insulin Glargine 20 UNITS in Pre-Filled Syringe 1 EACH SC SCH (21:04)
[2019-07-11 05:22] LABS: Anion Gap 13 mmol/L (10-20); BUN (Urea Nitrogen) 5 mg/dL (9.8-20.1); Calc. Creatinine Clearance 136 mL/min (70-130); Carbon Dioxide 20 mmol/L (22-29); Chloride 110 mmol/L (98-107); Estimated GFR-MDRD 77; Glucose 205 mg/dL (70-105); Potassium 4.1 mmol/L (3.5-5.1); Sodium 139 mmol/L (136-145)
[2019-07-11] MEDS: Sodium Chloride 0.9% 1,000 ML IV SCH ×2 (05:28→17:00)
[2019-07-11] MEDS: HumaLOG 300 UNITS/3 ML VIAL SC PRN ×3 (05:29→17:32)
[2019-07-11 06:25] LABS: Band 3 % (5-11); Eosinophils 1 % (0-10); Hemoglobin 10.5 g/dL (12.0-16.0); Lymphocytes 55 % (21-51); MDiff Complete? YES; Mean Corpuscular Hemoglobin 29.3 pg (27.0-31.0); Mean Corpuscular Volume 91.6 fL (78.0-98.0); Mean Platelet Volume 8.6 fL (7.4-10.4); Monocytes 3 % (0-10); Neutrophil 37 % (42-75); Platelet Count 234 thou/uL (130-400); RBC Distribution Width 14.2 % (11.5-14.5); Reactive Lymphocytes 1 % (0-10); Red Blood Cell (RBC) Count 3.57 mill/uL (4.20-5.40); White Blood Cell (WBC) Count 5.3 thou/uL (4.8-10.8)
[2019-07-11] MEDS: Lisinopril 2.5 MG TAB PO SCH (08:30)
[2019-07-11] MEDS: metFORMIN 500 MG TAB PO SCH ×2 (08:30→17:32)
[2019-07-11] MEDS: Insulin Glargine 20 UNITS in Pre-Filled Syringe 1 EACH SC SCH ×2 (08:32→21:18)
[2019-07-11] MEDS: Aspirin/APAP/Caffeine Tab (Excedrin Migraine) PO PRN (11:09)
[2019-07-11] MEDS ORDERED: Ondansetron PF 4 MG/2 ML Vial IVP PRN (11:15)
--- NOTE | 2019-07-11 12:33 | PDOC.HOSPP ---
- Subjective Encounter Date: 07/11/19 Encounter Time: 11:00 Subjective: no further diarrhea, has some nausea, no abd pain a bit emotional this am, offered spiritual care consult, has her international travel consultant coming in an hour. no chest pain or sob says she is amb in room - Objective Vital Signs & Weight: Vital Signs (12 hours) Temp Pulse Resp BP BP BP Pulse Ox 07/11/19 08:30 103 H 154/89 H 07/11/19 07:14 98.1 F 103 H 18 154/89 H 96 07/11/19 05:08 97.7 F 79 18 154/94 H 97 Weight Admit Weight 231 lb Weight 231 lb Most Recent Monitor Data Heart Rate from ECG 96 NIBP 135/65 NIBP BP-Mean 88 Respiration from ECG 16 SpO2 98 I&O: 07/10/19 07/11/19 07/12/19 06:59 06:59 06:59 Intake Total 2880 4136 Output Total 610 1050 Balance 2270 3086 Result Diagrams: 07/11/19 04:51 07/11/19 04:51 Additional Labs: Accuchecks 07/11/19 07/11/19 07/10/19 11:26 05:08 20:46 POC Glucose 196 H 184 H 192 H 07/10/19 07/10/19 07/10/19 16:43 14:10 13:06 POC Glucose 368 H 115 H 126 H ROS - Medication Medications: Active Medications Generic Name Dose Route Start Last Admin Trade Name Freq PRN Reason Stop Dose Admin Acetaminophen 650 mg 07/09/19 23:48 07/10/19 00:09 Tylenol PO 650 mg Q6H PRN Administration MILD PAIN/FEVER Acetaminophen/Aspirin/Caffeine 1 tab 07/10/19 06:47 07/11/19 11:09 Excedrin Migraine PO 1 tab Q6H PRN Administration Headache Insulin Glargine 20 units/ 0.2 mls @ 0 mls/hr 07/10/19 21:00 07/11/19 08:32 Miscellaneous Medication SC 0.2 mls BID ALICIA Administration Sodium Chloride 1,000 mls @ 100 mls/hr 07/10/19 14:16 07/11/19 05:28 Normal Saline 0.9% IV 1,000 mls .Q10H ALICIA Administration Insulin Human Lispro 0 units 07/10/19 17:11 08/22/19 11:31 Humalog SC 3 unit .AGGRESSIVE SLIDING PRN Administration Aggressive Correctional Scale Lisinopril 2.5 mg 07/11/19 09:00 07/11/19 08:30 Zestril PO 2.5 mg DAILY ALICIA Administration Metformin HCl 500 mg 07/11/19 08:00 07/11/19 08:30 Glucophage PO 500 mg BID-WM ALICIA Administration Ondansetron HCl 4 mg 07/11/19 11:15 07/11/19 11:30 Zofran IVP 4 mg Q6H PRN Administration Nausea/Vomiting Pantoprazole Sodium 40 mg 07/11/19 09:00 07/11/19 08:31 Protonix PO 40 mg DAILY ALICIA Administration Sertraline HCl 150 mg 07/11/19 09:00 07/11/19 08:31 Zoloft PO 150 mg DAILY ALICIA Administration - Exam NAD, awake alert Eye: PERRL, anicteric sclera ENT: no oropharyngeal lesions, moist mucosa Neck: supple, no JVD Heart: RRR, no murmur Respiratory: no wheezes, no ronchi Gastrointestinal: soft, non-tender, non-distended, normal bowel sounds Extremities: no cyanosis, no clubbing, no edema Neurological: CN's grossly intact, no focal deficits Psychiatric: A&O x 3 Hosp A/P (1) DKA (diabetic ketoacidosis) Code(s): E13.10 - OTH DIABETES MELLITUS WITH KETOACIDOSIS WITHOUT COMA Status : Resolved (2) Acute gastroenteritis Code(s): K52.9 - NONINFECTIVE GASTROENTERITIS AND COLITIS, UNSPECIFIED Status : Resolved (3) Moderate dehydration Code(s): E86.0 - DEHYDRATION Status: Resolved (4) Morbid obesity with BMI of 40.0-44.9, adult Code(s): E66.01 - MORBID (SEVERE) OBESITY DUE TO EXCESS CALORIES; Z68.41 - BODY MASS INDEX (BMI) 40.0-44.9, ADULT Status: Chronic (5) HTN (hypertension) Code(s): I10 - ESSENTIAL (PRIMARY) HYPERTENSION Status: Chronic Qualifiers: Hypertension type: essential hypertension Qualified Code(s): I10 - Essential (primary) hypertension (6) Depression Code(s): F32.9 - MAJOR DEPRESSIVE DISORDER, SINGLE EPISODE, UNSPECIFIED Status : Chronic Qualifiers: Depression Type: major depressive disorder Major depression episode severity: moderate (7) DM type 2 (diabetes mellitus, type 2) Status: Acute Qualifiers: Diabetes mellitus [facility] insulin use: with termination clerk use - Plan is on lantus and metformin, will dc iv fluids once she starts eating well will try to set up outpt colonoscopy in view of rec diarrhea, weight loss (no prior colonoscopy). outpt stress testing in 1-2 months she will have endocrinology appt in aug at [facility] likely stool for cdif is -ve, diarrhea has resolved to ambulate in hallway as tolerated likely dc plan in am if stable
[2019-07-12] MEDS: Sodium Chloride 0.9% 1,000 ML IV SCH ×2 (01:51→06:11)
[2019-07-12] MEDS: Insulin Glargine 20 UNITS in Pre-Filled Syringe 1 EACH SC SCH (09:09)
[2019-07-12] MEDS: Lisinopril 2.5 MG TAB PO SCH (09:10)
[2019-07-12] MEDS: metFORMIN 500 MG TAB PO SCH (09:11)
[2019-07-12] MEDS: Acetaminophen 325 MG TAB PO PRN (09:12)
[2019-07-12 12:44] VITALS: BP 154/78; TEMP 97.5
--- NOTE | 2019-07-12 15:04 | DIS ---
DATE OF ADMISSION: 07/09/2019 DATE OF DISCHARGE: 07/12/2019 DISCHARGE DISPOSITION: Home. PRIMARY DISCHARGE DIAGNOSES: Diabetic ketoacidosis with type 2 diabetes, resolved; moderate dehydration, resolved; acute gastroenteritis on arrival, likely viral/ food poisoning, resolved; morbid obesity; hypertension; and depression. PROCEDURES DONE DURING HOSPITALIZATION: Hemoglobin and hematocrit of 10 and 32, platelet count 234, had initial bicarb of less than 8 with serum sugar of 719. Lipase was 8. Venous blood gas showed a pH of 7.12, pCO2 of 17. Chest x-ray done showed no acute cardiopulmonary process. DISCHARGE MEDICATIONS: 1. Levemir 20 units subcu twice daily. 2. Metformin 500 mg p.o. twice daily. 3. Omeprazole 20 mg daily. 4. Sertraline 150 mg daily. 5. Lisinopril 2.5 mg p.o. daily. ALLERGIES: MEPERIDINE AND CODEINE. DISCHARGE PLAN: The patient to follow up with primary care physician in 1 week. BRIEF COURSE DURING HOSPITALIZATION: The patient initially went to [place] [facility] with complaints of feeling dizzy. She was found to be in severe DKA with pH of 7.1. She has had similar episode in the past. She apparently had some diarrheal episodes on Monday, which got completely resolved. She claims to hydrate herself with a big jug of water that she takes from home to her workplace. She also states she is compliant with her medications with Levemir, Humalog, and metformin. Despite all this, the patient had severe DKA. She was on IV insulin protocol in the IMCU and later downgraded to medical floor. Her gap completely closed, and the patient was transferred to medical floor. Prior to discharge, she has ambulated nearly 300 feet or more. She is tolerating oral solid diet. The patient will follow up with Dr. Escalante in the outpatient setting for a stress test in the next 1 to 2 months due to multiple risk factors and no prior cardiac w/u, she also has had sob on exertion recently. She also needs to follow up with Dr. Argueta in a week and set up outpatient colonoscopy in view of recurrent diarrheal episodes. I have counseled the patient to ask Dr. Argueta to set up outpatient appointment with strategic account director. The patient's daughter is trying to set up outpatient endocrinology appointment in August with a new provider at [facility]. Please note, I have seen and examined the patient on the day of discharge. She is hemodynamically stable and will be shortly discharged home. Job ID: [id number]
== END 2019-07-12 14:06 | disposition home or self-care (01) | DRG 638 ==
LOC: ERS 18:59 → IMCU/EMU 19:31 → T4-B 07-10 18:06
PROVIDERS: ADMIT Internal Medicine; ATTEND Internal Medicine
DX: E11.10 Type 2 diabetes mellitus with ketoacidosis without coma (principal); Z68.41 Body mass index [BMI] 40.0-44.9, adult; I10 Essential (primary) hypertension; A08.4 Viral intestinal infection, unspecified; A05.9 Bacterial foodborne intoxication, unspecified; E66.01 Morbid (severe) obesity due to excess calories; F32.9 Major depressive disorder, single episode, unspecified; K21.9 Gastro-esophageal reflux disease without esophagitis; M79.2 Neuralgia and neuritis, unspecified; K52.9 Noninfective gastroenteritis and colitis, unspecified; E86.0 Dehydration; E78.5 Hyperlipidemia, unspecified; G47.00 Insomnia, unspecified; Z90.49 Acquired absence of other specified parts of digestive tract; Z79.4 Long term (current) use of insulin; Z79.899 Other long term (current) drug therapy; Z88.5 Allergy status to narcotic agent
CPT/HCPCS: 36415; 36416; 80048; 81001; 83735; 83880; 84100; 85025; 87040; 87086; 87324; 87449; 96365; 96374; J1815; J2405; J3490